=== PATIENT | male | born 1990 | race Caucasian/White ===

== ENCOUNTER 2023-04-13 06:00 | Day surgery (SDC) | payer OTHER | END 2023-04-13 10:15 | disposition home or self-care (01) | LOC: AMB-ENDOS 06:00 | PROVIDERS: ATTEND Surgery | DX: K21.9 Gastro-esophageal reflux disease without esophagitis (principal); K20.90 Esophagitis, unspecified without bleeding; R10.13 Epigastric pain; Z20.822 Contact with and (suspected) exposure to COVID-19; K44.9 Diaphragmatic hernia without obstruction or gangrene ==